=== PATIENT | female | born 1945 | race Caucasian/White ===

== ENCOUNTER 2019-04-10 18:37 | Emergency (ER) | payer MEDICARE ==
[2019-04-10 18:48] VITALS: PULSE 94
[2019-04-10] MEDS ORDERED: SODIUM CHLORIDE 0.9% 500 ML 500 ML IV STA (18:54)
--- NOTE | 2019-04-10 19:09 | ED ---
General Adult HPI - General Chief complaint: Syncope Stated complaint: near syncope Time Seen by Provider: 04/10/19 18:43 Source: patient, EMS Mode of arrival: EMS Limitations: no limitations - History of Present Illness Initial comments: 74-year-old female patient presents to the emergency department today for evaluation of leg weakness. Patient states she was out shopping, when she got back to the car her legs gave out on her. States today felt like they would not hold her up. States that her son was present and did catch her. She denies falling or hitting her head. She denies any recent head injury. Denies numbness or tingling to her extremities. Denies history of similar symptoms. She denies any headache, blurred vision, double vision. States she has been sick recently with upper respiratory symptoms including nasal congestion, cough, and occasional sweats. Denies any known fever. Denies any hematuria, dysuria, urinary frequency, urinary urgency. Patient denies any recent rash, shortness breath, chest pain, abdominal pain, nausea, vomiting, diarrhea, constipation, back pain, or any other complaints. - Related Data Allergies Allergy/AdvReac Type Severity Reaction Status Date / Time chocolate flavor Allergy Rash/Hives Verified 04/10/19 19:42 Review of Systems ROS Statement: Those systems with pertinent positive or pertinent negative responses have been documented in the HPI. ROS Other: All systems not noted in ROS Statement are negative. Past Medical History Past Medical History: Cancer Additional Past Medical History / Comment(s): intestinal CA in 2011 Past Surgical History: Bowel Resection, Hysterectomy Smoking Status: Never smoker Past Alcohol Use History: Rare Past Drug Use History: None Reported General Exam Limitations: no limitations General appearance: alert, in no apparent distress, other (This is a well- developed, well-nourished elderly female patient in no acute distress. Vital signs upon presentation are temperature 97.9F, pulse 94, respirations 19, blood pressure 152/91, pulse ox 97% on room air.) Eye exam: Present: normal appearance, PERRL, EOMI. Absent: scleral icterus, conjunctival injection, periorbital swelling ENT exam: Present: normal exam, normal oropharynx, mucous membranes moist Respiratory exam: Present: normal lung sounds bilaterally. Absent: respiratory distress, wheezes, rales, rhonchi, stridor Cardiovascular Exam: Present: regular rate, normal rhythm, normal heart sounds. Absent: systolic murmur, diastolic murmur, rubs, gallop, clicks GI/Abdominal exam: Present: soft, normal bowel sounds. Absent: distended, tenderness, guarding, rebound, rigid Neurological exam: Present: alert, oriented X3, CN II-XII intact Expanded Speech: Present: fluid speech Cranial nerves: EOM's Intact: Normal, Tongue Deviation: Normal Motor strength exam: RUE: 5, LUE: 5, RLE: 5, LLE: 5 Psychiatric exam: Present: normal affect, normal mood Skin exam: Present: warm, dry, intact, normal color. Absent: rash Course Vital Signs 04/10/19 04/10/19 18:39 22:19 Temperature 97.9 F 98.3 F Pulse Rate 94 94 Respiratory 19 18 Rate Blood Pressure 152/91 145/103 O2 Sat by Pulse 97 95 Oximetry EKG Findings - EKG Comments: EKG Findings:: EKG obtained at 1852 shows normal sinus rhythm with a ventricular rate of 91, NJ interval 124, QRS duration 84, QT 372, QTc 457. No evidence of ST elevation or depression. Medical Decision Making - Medical Decision Making 74-year-old female patient presents to the emergency department today for evaluation of weakness in her legs. Physical examination was unremarkable. She was neurologically intact with no focal deficits. Strength to the bilateral lower extremities is 5 out of 5. She is afebrile normal vital signs. Labs reviewed and showed elevated white blood cell count at 15,000. Chest x-ray showed no acute abnormalities. Urinalysis showed no evidence for infection. She denied any wounds or rash. EKG showed normal sinus rhythm. I did discuss findings and results with the patient. She was able to ambulate to department without any difficulty. She does feel well. She requests to go home. She is instructed follow up with her primary care physician for recheck in 1-2 days. Return parameters were discussed in detail. She verbalizes understanding and agrees with this plan. - Lab Data Result diagrams: 04/10/19 19:30 04/10/19 19:30 Lab Results 04/10/19 04/10/19 04/10/19 Range/Units 19:30 19:30 19:30 WBC 15.3 H (3.8-10.6) k/uL RBC 4.95 (3.80-5.40) m/uL Hgb 14.0 (11.4-16.0) gm/dL Hct 42.7 (34.0-46.0) % MCV 86.3 (80.0-100.0) fL MCH 28.3 (25.0-35.0) pg MCHC 32.7 (31.0-37.0) g/dL RDW 13.9 (11.5-15.5) % Plt Count 269 (150-450) k/uL Neutrophils % 88 % Lymphocytes % 6 % Monocytes % 4 % Eosinophils % 1 % Basophils % 0 % Neutrophils # 13.4 H (1.3-7.7) k/uL Lymphocytes # 0.9 L (1.0-4.8) k/uL Monocytes # 0.7 (0-1.0) k/uL Eosinophils # 0.2 (0-0.7) k/uL Basophils # 0.0 (0-0.2) k/uL PT (9.0-12.0) sec INR (<1.2) APTT (22.0-30.0) sec Sodium 140 (137-145) mmol/L Potassium 5.2 H (3.5-5.1) mmol/L Chloride 112 H (98-107) mmol/L Carbon Dioxide 17 L (22-30) mmol/L Anion Gap 11 mmol/L BUN 23 H (7-17) mg/dL Creatinine 0.80 (0.52-1.04) mg/dL Est GFR (CKD-EPI)AfAm 85 (>60 ml/min/1.73 sqM) Est GFR (CKD-EPI)NonAf 74 (>60 ml/min/1.73 sqM) Glucose 119 H (74-99) mg/dL Plasma Lactic Acid Oni 1.1 (0.7-2.0) mmol/L Calcium 9.7 (8.4-10.2) mg/dL Magnesium 1.9 (1.6-2.3) mg/dL Total Bilirubin 1.1 (0.2-1.3) mg/dL AST 46 H (14-36) U/L ALT 12 (9-52) U/L Alkaline Phosphatase 73 (38-126) U/L Troponin I (0.000-0.034) ng/mL Total Protein 8.4 H (6.3-8.2) g/dL Albumin 4.6 (3.5-5.0) g/dL Urine Color Urine Appearance (Clear) Urine pH (5.0-8.0) Ur Specific [place] (1.001-1.035) Urine Protein (Negative) Urine Glucose (UA) (Negative) Urine Ketones (Negative) Urine Blood (Negative) Urine Nitrite (Negative) Urine Bilirubin (Negative) Urine Urobilinogen (<2.0) mg/dL Ur Leukocyte Esterase (Negative) Urine RBC (0-5) /hpf Urine WBC (0-5) /hpf Ur Squamous Epith Cells (0-4) /hpf Hyaline Casts (0-2) /lpf Urine Mucus (None) /hpf 04/10/19 04/10/19 04/10/19 Range/Units 19:30 19:30 21:20 WBC (3.8-10.6) k/uL RBC (3.80-5.40) m/uL Hgb (11.4-16.0) gm/dL Hct (34.0-46.0) % MCV (80.0-100.0) fL MCH (25.0-35.0) pg MCHC (31.0-37.0) g/dL RDW (11.5-15.5) % Plt Count (150-450) k/uL Neutrophils % % Lymphocytes % % Monocytes % % Eosinophils % % Basophils % % Neutrophils # (1.3-7.7) k/uL Lymphocytes # (1.0-4.8) k/uL Monocytes # (0-1.0) k/uL Eosinophils # (0-0.7) k/uL Basophils # (0-0.2) k/uL PT 9.9 (9.0-12.0) sec INR 0.9 (<1.2) APTT 22.8 (22.0-30.0) sec Sodium (137-145) mmol/L Potassium (3.5-5.1) mmol/L Chloride (98-107) mmol/L Carbon Dioxide (22-30) mmol/L Anion Gap mmol/L BUN (7-17) mg/dL Creatinine (0.52-1.04) mg/dL Est GFR (CKD-EPI)AfAm (>60 ml/min/1.73 sqM) Est GFR (CKD-EPI)NonAf (>60 ml/min/1.73 sqM) Glucose (74-99) mg/dL Plasma Lactic Acid Oni (0.7-2.0) mmol/L Calcium (8.4-10.2) mg/dL Magnesium (1.6-2.3) mg/dL Total Bilirubin (0.2-1.3) mg/dL AST (14-36) U/L ALT (9-52) U/L Alkaline Phosphatase (38-126) U/L Troponin I <0.012 (0.000-0.034) ng/mL Total Protein (6.3-8.2) g/dL Albumin (3.5-5.0) g/dL Urine Color Yellow Urine Appearance Clear (Clear) Urine pH 5.0 (5.0-8.0) Ur Specific [place] 1.023 (1.001-1.035) Urine Protein Negative (Negative) Urine Glucose (UA) Negative (Negative) Urine Ketones 1+ H (Negative) Urine Blood Small H (Negative) Urine Nitrite Negative (Negative) Urine Bilirubin Negative (Negative) Urine Urobilinogen <2.0 (<2.0) mg/dL Ur Leukocyte Esterase Negative (Negative) Urine RBC <1 (0-5) /hpf Urine WBC <1 (0-5) /hpf Ur Squamous Epith Cells <1 (0-4) /hpf Hyaline Casts 1 (0-2) /lpf Urine Mucus Rare H (None) /hpf - Radiology Data Radiology results: report reviewed, image reviewed Two-view x-ray of the chest is obtained. Report was reviewed in its entirety. Impression by Dr. Hewitt shows no active cardiopulmonary disease. No heart failure. Disposition Clinical Impression: Leg weakness, Dehydration Disposition: HOME SELF-CARE Condition: Good Instructions (If sedation given, give patient instructions): Dehydration (ED), Weakness (ED) Additional Instructions: Follow-up with your primary care physician for recheck in 1-2 days. Increase fluids especially water. Return to the emergency department immediately for any new, worsening, or concerning symptoms. Is patient prescribed a controlled substance at d/c from ED?: No Referrals: Sinan Walsh MD [Primary Care Provider] - 1-2 days Time of Disposition: 22:52
[2019-04-10 19:45] LABS: Basophils % (A) 0 %; Eosinophils # (A) 0.2 k/uL (0-0.7); Eosinophils % (A) 1 %; HCT 42.7 % (34.0-46.0); Lymphocytes # (A) 0.9 k/uL (1.0-4.8); Lymphocytes % (A) 6 %; MCH 28.3 pg (25.0-35.0); MCHC 32.7 g/dL (31.0-37.0); MCV 86.3 fL (80.0-100.0); Mean Platelet Volume 8.2; Monocytes # (A) 0.7 k/uL (0-1.0); Monocytes % (A) 4 %; Neutrophils # (A) 13.4 k/uL (1.3-7.7); Neutrophils % (A) 88 %; Platelet Count 269 k/uL (150-450); RBC 4.95 m/uL (3.80-5.40); RDW 13.9 % (11.5-15.5); WBC 15.3 k/uL (3.8-10.6)
[2019-04-10 19:54] LABS: Albumin 4.6 g/dL (3.5-5.0); Calcium 9.7 mg/dL (8.4-10.2); Magnesium 1.9 mg/dL (1.6-2.3); Total Bilirubin 1.1 mg/dL (0.2-1.3); Total Protein 8.4 g/dL (6.3-8.2)
--- NOTE | 2019-04-10 19:54 | XR ---
EXAMINATION TYPE: XR chest 2V DATE OF EXAM: 04/10/2019 COMPARISON: NONE HISTORY: Weakness TECHNIQUE: 2 views FINDINGS: Heart is normal. Lungs are clear of consolidation. There are no hilar masses. There are jenny st leads. There is poor inspiration. There is minimal thoracolumbar kyphotic deformity. IMPRESSION: No active cardiopulmonary disease. No heart failure.
[2019-04-10 20:06] LABS: Potassium 5.2 mmol/L (3.5-5.1)
[2019-04-10] MEDS ORDERED: SODIUM CHLORIDE 0.9% 500 ML 500 ML IV ONE (20:10)
[2019-04-10 20:19] LABS: INR 0.9 (<1.2); Partial Thromboplastin Time 22.8 sec (22.0-30.0); Prothrombin Time 9.9 sec (9.0-12.0)
[2019-04-10 21:32] LABS: Appearance,Urine Clear (Clear); Bilirubin,Urine Negative (Negative); Blood,Urine Small (Negative); Color,Urine Yellow; Glucose,Urine (UA) Negative (Negative); Hyaline Casts,Urine 1 /lpf (0-2); Ketones,Urine 1+ (Negative); Leukocyte Esterase,Urine Negative (Negative); Mucus,Urine Rare /hpf; Nitrite,Urine Negative (Negative); Protein,Urine Negative (Negative); RBC,Urine <1 /hpf (0-5); Specific Gravity,Urine 1.023 (1.001-1.035); Squamous Epithelial Cell,Urine <1 /hpf (0-4); Urobilinogen,Urine <2.0 mg/dL (<2.0); WBC,Urine <1 /hpf (0-5)
[2019-04-10 22:20] VITALS: BP 145/103; RESP 18; TEMP 98.3
== END 2019-04-10 22:55 | disposition home or self-care (01) ==
LOC: EC 18:37
DX: E86.0 Dehydration (principal); D72.829 Elevated white blood cell count, unspecified; M62.81 Muscle weakness (generalized); Z91.018 Allergy to other foods; Z85.09 Personal history of malignant neoplasm of other digestive organs; Z90.49 Acquired absence of other specified parts of digestive tract
CPT/HCPCS: 36415; 71046; 80053; 81001; 83605; 83735; 84484; 85025; 85610; 85730; 93005; 96360; 96361; 99285

== ENCOUNTER 2020-03-20 08:54 | Inpatient (IN) | payer MEDICARE ==
[2020-03-20 08:58] VITALS: RESP 18
[2020-03-20] MEDS ORDERED: ACETAMINOPHEN TAB 500 MG TAB PO STA (09:13)
[2020-03-20] MEDS ORDERED: ACETAMINOPHEN TAB 500 MG TAB PO PRN (09:13)
[2020-03-20] MEDS ORDERED: ALBUTEROL HFA INHALER INHALATION PRN (09:13)
--- NOTE | 2020-03-20 09:15 | ED ---
General Adult HPI - General Chief complaint: Shortness of Breath Stated complaint: +COVID, SOB Time Seen by Provider: 03/20/20 09:03 Source: patient, RN notes reviewed Mode of arrival: wheelchair Limitations: no limitations - History of Present Illness Initial comments: Patient is a pleasant 75-year-old female presenting to the emergency Department with concerns for fever fatigue and dyspnea. Onset of symptoms is a few days ago. Patient received positive covert 19 test from her doctor yesterday. Minimal cough. Patient does feel short of breath. No history of chronic lung sounds. No leg pain or leg swelling. No chest pain. Patient has fatigue and myalgias and chills - Related Data Allergies Allergy/AdvReac Type Severity Reaction Status Date / Time chocolate flavor Allergy Rash/Hives Verified 04/10/19 19:42 Review of Systems ROS Statement: Those systems with pertinent positive or pertinent negative responses have been documented in the HPI. ROS Other: All systems not noted in ROS Statement are negative. Constitutional: Reports: fever, chills Eyes: Denies: eye pain ENT: Denies: ear pain Respiratory: Reports: dyspnea Cardiovascular: Denies: chest pain Endocrine: Reports: fatigue Gastrointestinal: Reports: nausea. Denies: abdominal pain, vomiting Genitourinary: Denies: dysuria Musculoskeletal: Denies: back pain Skin: Denies: rash Neurological: Denies: confusion Past Medical History Past Medical History: Cancer Additional Past Medical History / Comment(s): intestinal CA in 2011 History of Any Multi-Drug Resistant Organisms: None Reported Past Surgical History: Bowel Resection, Hysterectomy Past Psychological History: No Psychological Hx Reported Smoking Status: Never smoker Past Alcohol Use History: Rare Past Drug Use History: None Reported General Exam Limitations: no limitations General appearance: alert, in no apparent distress Head exam: Present: normocephalic Eye exam: Present: normal appearance Neck exam: Present: normal inspection Respiratory exam: Present: normal lung sounds bilaterally Cardiovascular Exam: Present: tachycardia GI/Abdominal exam: Present: soft. Absent: tenderness Extremities exam: Present: normal inspection. Absent: pedal edema, calf tendern ess Neurological exam: Present: alert Psychiatric exam: Present: normal affect, normal mood Skin exam: Present: normal color Course Vital Signs 03/20/20 08:56 Temperature 98.0 F Pulse Rate 105 H Respiratory 18 Rate Blood Pressure 156/78 O2 Sat by Pulse 96 Oximetry EKG Findings - EKG Comments: EKG Findings:: Neuro complex tachycardia with a rate of 107. Some irregularity is present. QRS 78. QT 356. QTc 475. Superior axis. Left posterior fascicular block. Nonspecific ST-T. Motion artifact present. Medical Decision Making - Medical Decision Making Patient reevaluated and updated. Case was discussed with Dr. Walsh who did eval uate patient in the emergency department and will admit his patient. - Lab Data Result diagrams: 03/20/20 09:15 03/20/20 09:15 Lab Results 03/20/20 03/20/20 03/20/20 Range/Units 09:15 09:15 09:15 WBC 8.9 (3.8-10.6) k/uL RBC 5.09 (3.80-5.40) m/uL Hgb 14.5 (11.4-16.0) gm/dL Hct 43.1 (34.0-46.0) % MCV 84.7 (80.0-100.0) fL MCH 28.4 (25.0-35.0) pg MCHC 33.6 (31.0-37.0) g/dL RDW 14.0 (11.5-15.5) % Plt Count 243 (150-450) k/uL MPV 7.9 Neutrophils % 81 % Lymphocytes % 14 % Monocytes % 3 % Eosinophils % 0 % Basophils % 1 % Neutrophils # 7.2 (1.3-7.7) k/uL Lymphocytes # 1.2 (1.0-4.8) k/uL Monocytes # 0.3 (0-1.0) k/uL Eosinophils # 0.0 (0-0.7) k/uL Basophils # 0.1 (0-0.2) k/uL PT 9.7 (9.0-12.0) sec INR 0.9 (<1.2) APTT 24.8 (22.0-30.0) sec Sodium 145 (137-145) mmol/L Potassium 4.1 (3.5-5.1) mmol/L Chloride 111 H (98-107) mmol/L Carbon Dioxide 21 L (22-30) mmol/L Anion Gap 13 mmol/L BUN 26 H (7-17) mg/dL Creatinine 0.67 (0.52-1.04) mg/dL Est GFR (CKD-EPI)AfAm >90 (>60 ml/min/1.73 sqM) Est GFR (CKD-EPI)NonAf 88 (>60 ml/min/1.73 sqM) Glucose 128 H (74-99) mg/dL Plasma Lactic Acid Oni (0.7-2.0) mmol/L Calcium 9.7 (8.4-10.2) mg/dL Magnesium 2.1 (1.6-2.3) mg/dL Total Bilirubin 0.7 (0.2-1.3) mg/dL AST 48 H (14-36) U/L ALT 21 (4-34) U/L Alkaline Phosphatase 76 (38-126) U/L Lactate Dehydrogenase 952 H (313-618) U/L C-Reactive Protein 85.8 H (<10.0) mg/L Total Protein 8.2 (6.3-8.2) g/dL Albumin 4.2 (3.5-5.0) g/dL 03/20/20 Range/Units 09:15 WBC (3.8-10.6) k/uL RBC (3.80-5.40) m/uL Hgb (11.4-16.0) gm/dL Hct (34.0-46.0) % MCV (80.0-100.0) fL MCH (25.0-35.0) pg MCHC (31.0-37.0) g/dL RDW (11.5-15.5) % Plt Count (150-450) k/uL MPV Neutrophils % % Lymphocytes % % Monocytes % % Eosinophils % % Basophils % % Neutrophils # (1.3-7.7) k/uL Lymphocytes # (1.0-4.8) k/uL Monocytes # (0-1.0) k/uL Eosinophils # (0-0.7) k/uL Basophils # (0-0.2) k/uL PT (9.0-12.0) sec INR (<1.2) APTT (22.0-30.0) sec Sodium (137-145) mmol/L Potassium (3.5-5.1) mmol/L Chloride (98-107) mmol/L Carbon Dioxide (22-30) mmol/L Anion Gap mmol/L BUN (7-17) mg/dL Creatinine (0.52-1.04) mg/dL Est GFR (CKD-EPI)AfAm (>60 ml/min/1.73 sqM) Est GFR (CKD-EPI)NonAf (>60 ml/min/1.73 sqM) Glucose (74-99) mg/dL Plasma Lactic Acid Oni 2.3 H* (0.7-2.0) mmol/L Calcium (8.4-10.2) mg/dL Magnesium (1.6-2.3) mg/dL Total Bilirubin (0.2-1.3) mg/dL AST (14-36) U/L ALT (4-34) U/L Alkaline Phosphatase (38-126) U/L Lactate Dehydrogenase (313-618) U/L C-Reactive Protein (<10.0) mg/L Total Protein (6.3-8.2) g/dL Albumin (3.5-5.0) g/dL - Radiology Data Radiology results: image reviewed (Chest x-ray does show scattered infiltrates, mild) Disposition Clinical Impression: COVID-19 Disposition: ADMITTED IP TO THIS HOSP Is patient prescribed a controlled substance at d/c from ED?: No Referrals: Sinan Walsh MD [Primary Care Provider] - 1-2 days Decision Time: 10:12
[2020-03-20] MEDS ORDERED: ALBUTEROL HFA INHALER INHALATION STA (09:18)
[2020-03-20 09:46] LABS: Basophils # (A) 0.1 k/uL (0-0.2); Basophils % (A) 1 %; Eosinophils % (A) 0 %; HCT 43.1 % (34.0-46.0); HGB 14.5 gm/dL (11.4-16.0); Lymphocytes # (A) 1.2 k/uL (1.0-4.8); Lymphocytes % (A) 14 %; MCH 28.4 pg (25.0-35.0); MCHC 33.6 g/dL (31.0-37.0); MCV 84.7 fL (80.0-100.0); Mean Platelet Volume 7.9; Monocytes # (A) 0.3 k/uL (0-1.0); Monocytes % (A) 3 %; Neutrophils # (A) 7.2 k/uL (1.3-7.7); Neutrophils % (A) 81 %; Platelet Count 243 k/uL (150-450); RBC 5.09 m/uL (3.80-5.40); WBC 8.9 k/uL (3.8-10.6)
--- NOTE | 2020-03-20 09:48 | XR ---
EXAMINATION TYPE: XR chest 1V portable DATE OF EXAM: 03/20/2020 COMPARISON: 04/10/2019 INDICATION: Covid 19 pneumonia, short of breath, fever TECHNIQUE: Single frontal view of the chest is obtained. FINDINGS: The heart size is normal. The pulmonary vasculature is normal. Some mild peripheral filtrates are evident greater at the right base. Findings are nonspecific but ca n be compatible with atypical pneumonia. IMPRESSION: 1. Mild scattered mid lower lung field infiltrates are nonspecific but can be compatible with atypica l pneumonia.
[2020-03-20 10:02] LABS: INR 0.9 (<1.2); Partial Thromboplastin Time 24.8 sec (22.0-30.0); Prothrombin Time 9.7 sec (9.0-12.0)
[2020-03-20 10:04] LABS: ALT 21 U/L (4-34); AST 48 U/L (14-36); African American GFR (CKD) >90 (>60 ml/min/1.73 sqM); Albumin 4.2 g/dL (3.5-5.0); Alkaline Phosphatase 76 U/L (38-126); Anion Gap 13 mmol/L; Blood Urea Nitrogen 26 mg/dL (7-17); C Reactive Protein 85.8 mg/L (<10.0); Calcium 9.7 mg/dL (8.4-10.2); Carbon Dioxide 21 mmol/L (22-30); Chloride 111 mmol/L (98-107); Glucose 128 mg/dL (74-99); LDH 952 U/L (313-618); Magnesium 2.1 mg/dL (1.6-2.3); Non-African American GFR(CKD) 88 (>60 ml/min/1.73 sqM); Potassium 4.1 mmol/L (3.5-5.1); Sodium 145 mmol/L (137-145); Total Bilirubin 0.7 mg/dL (0.2-1.3); Total Protein 8.2 g/dL (6.3-8.2)
[2020-03-20] MEDS ORDERED: NALOXONE 0.4 MG/ML 1 ML VIAL IV PRN (10:12)
[2020-03-20] MEDS: SODIUM CHLORIDE 0.9% 1,000 ML IV SCH ×2 (10:36→20:56)
[2020-03-20] MEDS: ASCORBIC ACID 500 MG TAB PO SCH ×2 (12:12→20:56)
--- NOTE | 2020-03-20 12:12 | P.HPIM ---
History of Present Illness H&P Date: 03/20/20 HISTORY OF PRESENT ILLNESS This is a 75-year-old female patient of Dr. Walsh with past medical history of hypertension, hyperlipidemia, hypothyroidism, colon cancer stage III status post bowel resection in remission. Patient was in the office on Monday and had Covid 19 testing which came back positive on Monday. Staff attempted to contact the patient. Patient complains of fever, generalized malaise and weakness, nausea. She came into the emergency center for evaluation. She was found to be afebrile, heart rate 105, blood pressure 156/78, pulse ox 96% on room air. CBC was unremarkable. Chloride 111, CO2 21, BUN 26 and creatinine 0.67. Lactic acid 2.3. AST 48. LDH 952, C-reactive protein 85.8. EKG was a sinus rhythm. Chest x-ray revealed mild scattered mid lower lung field infiltrates are nonspecific but can be compatible with atypical pneumonia. Patient was started on dexamethasone, Lovenox, zinc, vitamin C and vitamin D, admitted to the observation unit and consult with pulmonary medicine. REVIEW OF SYSTEMS Constitutional: Reports fever, Reports chills, Reports sweats. No weight change. Reports weakness, Reports fatigue Reports lethargy. Reports generalized malaise. EENT: No headache. No blurred vision or double vision, no loss of vision. No dizziness. No nasal drainage or congestion. No epistaxis. No sore throat. Lungs: Reports shortness of breath, Reportscough, no sputum production. No whe ezing. Cardiovascular: No chest pain, no lower extremity edema. No palpitations. No paroxysmal nocturnal dyspnea. No orthopnea. No lightheadedness or dizziness. No syncopal episodes. Abdominal: No abdominal pain. No nausea, vomiting. No diarrhea. No constipation. No bloody or tarry stools.. No loss of appetite. Genitourinary: No dysuria, increased frequency, urgency. No urinary retention. Musculoskeletal: No myalgias. No muscle weakness, no gait dysfunction, no frequent falls. No back pain. No neck pain. Integumentary: No wounds, no lesions. Neurologic: No aphasia. No facial droop. No change in mentation. No head injury. No headache. Psychiatric: No depression. No anxiety. Endocrine: No abnormal blood sugars. No weight change. SOCIAL HISTORY Patient is a lifelong nonsmoker, rare alcohol use, no marijuana use or illicit drug use. She is a and lives alone. FAMILY HISTORY Father at age 60 from a massive myocardial infarction. Mother at age 86 with dementia and history of osteoporosis. Patient was an only child. Patient has 2 children one his past and one son has no major medical problems. PHYSICAL EXAMINATION Gen: This is a 75-year-old female. She is resting on the ear stretcher and appears to be comfortable. No acute respiratory distress at rest. HEENT: Head is atraumatic, normocephalic. Pupils equal, round. Sclerae is anicteric. NECK: Supple. No JVD. No lymphadenopathy. No thyromegaly. LUNGS: Clear to auscultation. No wheezes or rhonchi. No intercostal retractions. HEART: Regular rate and rhythm. No murmur. ABDOMEN: Soft. Bowel sounds are present. No masses. No tenderness. EXTREMITIES: No pedal edema. No calf tenderness. Dorsalis pedis palpable bilaterally. NEUROLOGICAL: Patient is awake, alert and oriented x3. Cranial nerves 2 through 12 are grossly intact. ASSESSMENT AND PLAN 1. Covid 19 pneumonia. Continue dexamethasone, Lovenox, zinc, vitamin C and vitamin D. Consult pulmonary medicine. 2. Lactic acidosis secondary to Covid infection. Continue IV fluids 0.9 normal saline at 100 mL per hour. 3. History of colon cancer stage III status post bowel resection, in remission. 4. Hypertension not currently on medication. 5. Hyperlipidemia history. 6. Hypothyroidism history. 7. DVT prophylaxis. Lovenox. 8. GI prophylaxis. Protonix. Patient placed on the observation status. DISCHARGE PLAN Return home. Impression and plan of care have been directed as dictated by the signing physician. Anjelica Rubio nurse practitioner acting as scribe for signing physician. Past Medical History Past Medical History: Cancer Additional Past Medical History / Comment(s): intestinal CA in 2011 History of Any Multi-Drug Resistant Organisms: None Reported Past Surgical History: Bowel Resection, Hysterectomy Past Psychological History: No Psychological Hx Reported Smoking Status: Never smoker Past Alcohol Use History: Rare Past Drug Use History: None Reported Medications and Allergies Home Medications Medication Instructions Recorded Confirmed Type Acetaminophen [Tylenol] 325 mg PO Q6H PRN 03/20/20 03/20/20 History Allergies Allergy/AdvReac Type Severity Reaction Status Date / Time chocolate flavor Allergy Rash/Hives Verified 03/20/20 10:34 Physical Exam Vitals: Vital Signs Temp Pulse Resp BP Pulse Ox 03/20/20 08:56 98.0 F 105 H 18 156/78 96 Intake and Output 03/19/20 03/20/20 03/20/20 22:59 06:59 14:59 Other: Weight 71.214 kg Results CBC & Chem 7: 03/20/20 09:15 03/20/20 09:15
[2020-03-20] MEDS: dexAMETHasone 2 MG TAB PO SCH (12:13)
[2020-03-20] MEDS: ENOXAPARIN 40 MG/0.4 ML SYRINGE SQ SCH (12:13)
[2020-03-20] MEDS: CHOLECALCIFEROL 1,000 UNIT TAB PO SCH (12:13)
[2020-03-20] MEDS: ZINC SULFATE 220 MG CAP PO SCH (12:13)
--- NOTE | 2020-03-20 14:09 | P.CNPUL ---
History of Present Illness Consult date: 03/20/20 Requesting physician: Sinan Walsh Reason for consult: other Chief complaint: Fever, weakness, fatigue History of present illness: 75-year-old white female patient of Dr. Walsh past medical history of hypertension, hyperlipidemia, hypothyroidism, colon cancer 5 years ago status post bowel resection and chemotherapy. Patient was admitted Dr. Walsh's office on Monday planning of back pain, she was tested for COVID 19, although she was not having any symptoms of COVID 19 at the time. On Monday she was contacted by them PCPs office to notify her of the positive results. She presented to the hospital on 03/20/2020 for evaluation of fevers, weakness, fatigue, dry cough. She denies any dyspnea. Denies any chest discomfort, no nausea vomiting or diarrhea. Chest x-ray showed mild scattered mid to lower lung field infiltrates, nonspecific but could be compatible with atypical pneumonia. CBC was unremarkable, coagulation profile was unremarkable, plasma lactic acid was 2.3, LDH was 952, CRP was 85.8. She was afebrile while in the hospital, sat 92% on room air, EKG showed accelerated junctional rhythm. The time of my evaluation patient is resting comfortably in bed, denies any dyspnea, denies chest discomfort, occasional dry cough. No nausea vomiting or diarrhea, she is getting IV hydration with 0.9 was seen at a rate of 100 ML per hour, she was started on oral Decadron, prophylactic dose of Lovenox, and vitamin C as well as zinc supplement. Review of Systems All systems: negative Constitutional: Denies chills, Denies fever Eyes: denies blurred vision, denies pain Ears, nose, mouth and throat: Denies headache, Denies sore throat Cardiovascular: Denies chest pain, Denies shortness of breath Respiratory: Reports dyspnea, Denies cough Gastrointestinal: Denies abdominal pain, Denies diarrhea, Denies nausea, Denies vomiting Genitourinary: Denies dysuria, Denies hematuria Musculoskeletal: Denies myalgias Integumentary: Denies pruritus, Denies rash Neurological: Denies numbness, Denies weakness Psychiatric: Denies anxiety, Denies depression Endocrine: Denies fatigue, Denies weight change Past Medical History Past Medical History: Cancer Additional Past Medical History / Comment(s): intestinal CA in 2011 History of Any Multi-Drug Resistant Organisms: None Reported Past Surgical History: Bowel Resection, Hysterectomy Past Anesthesia/Blood Transfusion Reactions: No Reported Reaction Past Psychological History: No Psychological Hx Reported Smoking Status: Never smoker Past Alcohol Use History: Rare Past Drug Use History: None Reported Medications and Allergies Home Medications Medication Instructions Recorded Confirmed Type Acetaminophen [Tylenol] 325 mg PO Q6H PRN 03/20/20 03/20/20 History Allergies Allergy/AdvReac Type Severity Reaction Status Date / Time chocolate flavor Allergy Rash/Hives Verified 03/20/20 10:34 Physical Exam Vitals: Vital Signs Temp Pulse Pulse Resp BP BP Pulse Ox 03/20/20 11:15 97.9 F 92 18 140/73 92 L 03/20/20 10:31 98.8 F 91 18 114/76 95 03/20/20 08:56 98.0 F 105 H 18 156/78 96 Intake and Output 03/19/20 03/20/20 03/20/20 22:59 06:59 14:59 Other: Weight 71.214 kg GENERAL EXAM: Alert, active, very pleasant 75-year-old white female, on room air with pulse ox of 92% comfortable in no apparent distress. HEAD: Normocephalic/atraumatic. EYES: Normal reaction of pupils, equal size. Conjunctiva pink, sclera white. NOSE: Clear with pink turbinates. THROAT: No erythema or exudates. NECK: No masses, no JVD, no thyroid enlargement, no adenopathy. CHEST: No chest wall deformity. Symmetrical expansion. LUNGS: Equal air entry with no crackles, wheeze, rhonchi or dullness. CVS: Regular rate and rhythm, normal S1 and S2, no gallops, no murmurs, no rubs ABDOMEN: Soft, nontender. No hepatosplenomegaly, normal bowel sounds, no guard ing or rigidity. EXTREMITIES: No clubbing, no edema, no cyanosis, 2+ pulses and upper and lower extremities. MUSCULOSKELETAL: Muscle strength and tone normal. SPINE: No scoliosis or deformity SKIN: No rashes CENTRAL NERVOUS SYSTEM: Alert and oriented -3. No focal deficits, tone is normal in all 4 extremities. PSYCHIATRIC: Alert and oriented -3. Appropriate affect. Intact judgment and insight. Results - Laboratory Findings CBC and BMP: 03/20/20 09:15 03/20/20 09:15 PT/INR, D-dimer PT 9.7 sec (9.0-12.0) 03/20/20 09:15 INR 0.9 (<1.2) 03/20/20 09:15 Abnormal lab findings: Abnormal Labs 03/20/20 03/20/20 09:15 09:15 Chloride 111 H Carbon Dioxide 21 L BUN 26 H Glucose 128 H Plasma Lactic Acid Oni 2.3 H* AST 48 H Lactate Dehydrogenase 952 H C-Reactive Protein 85.8 H - Diagnostic Findings Chest x-ray: report reviewed, image reviewed Assessment and Plan Plan: Assessment: #1. Acute COVID 19 pneumonia, tested positive for COVID on March 16, chest x- ray showing mild scattered mid to lower lung field infiltrates #2. Weakness, fatigue, fever related to the above #3. Hypertension #4. Hyperlipidemia #5. Hypothyroidism #6. Colon cancer status post bowel resection and chemotherapy 5 years ago, currently in remission #7. Increased inflammatory markers with the above Plan: Continue oral Decadron, continue vitamin C, zinc supplement, prophylactic dose of Lovenox, will obtain stat d-dimer, pro-calcitonin level, continue monitoring patient's oxygenation pattern, febrile pattern. No dyspnea, mild dry cough, patient is on room air, we'll continue to monitor the patient for another 24 hours, we'll continue to follow I performed a history & physical examination of the patient and discussed their management with my nurse practitioner, Jane Sun. I reviewed the nurse practitioner's note and agree with the documented findings and plan of care. Lung sounds are positive for diminished breath sounds. The findings and the impression was discussed with the patient. I attest to the documentation by the nurse practitioner. Time with Patient: Greater than 30
[2020-03-20 15:46] LABS: Ferritin 731.4 ng/mL (10.0-291.0)
[2020-03-20] MEDS: ALBUTEROL HFA INHALER INHALATION SCH ×2 (16:03→19:52)
[2020-03-20] MEDS ORDERED: MELATONIN 5 MG TABLET PO SCH (21:00)
[2020-03-21] MEDS: SODIUM CHLORIDE 0.9% 1,000 ML IV SCH (06:02)
[2020-03-21] MEDS: ALBUTEROL HFA INHALER INHALATION SCH ×2 (07:34→11:24)
[2020-03-21 08:36] VITALS: BP 129/59; PULSE 88; TEMP 97.7
[2020-03-21 09:23] LABS: Basophils % (A) 0 %; Eosinophils % (A) 0 %; HCT 40.8 % (34.0-46.0); HGB 13.4 gm/dL (11.4-16.0); Lymphocytes # (A) 0.8 k/uL (1.0-4.8); Lymphocytes % (A) 13 %; MCH 28.2 pg (25.0-35.0); MCHC 32.8 g/dL (31.0-37.0); MCV 86.2 fL (80.0-100.0); Monocytes # (A) 0.3 k/uL (0-1.0); Monocytes % (A) 4 %; Neutrophils % (A) 81 %; Platelet Count 225 k/uL (150-450); RBC 4.73 m/uL (3.80-5.40); WBC 6.1 k/uL (3.8-10.6)
[2020-03-21 09:29] LABS: Potassium 3.8 mmol/L (3.5-5.1)
[2020-03-21 09:33] LABS: ALT 17 U/L (4-34); AST 34 U/L (14-36); African American GFR (CKD) >90 (>60 ml/min/1.73 sqM); Albumin 3.3 g/dL (3.5-5.0); Alkaline Phosphatase 65 U/L (38-126); Anion Gap 9 mmol/L; Blood Urea Nitrogen 17 mg/dL (7-17); C Reactive Protein 66.1 mg/L (<10.0); Calcium 8.8 mg/dL (8.4-10.2); Carbon Dioxide 21 mmol/L (22-30); Chloride 115 mmol/L (98-107); Glucose 123 mg/dL (74-99); LDH 671 U/L (313-618); Non-African American GFR(CKD) 89 (>60 ml/min/1.73 sqM); Sodium 145 mmol/L (137-145); Total Bilirubin 0.5 mg/dL (0.2-1.3); Total Protein 6.7 g/dL (6.3-8.2)
[2020-03-21 09:38] LABS: D-Dimer 0.53 mg/L FEU (<0.60)
[2020-03-21] MEDS: ENOXAPARIN 40 MG/0.4 ML SYRINGE SQ SCH (09:43)
[2020-03-21] MEDS: ZINC SULFATE 220 MG CAP PO SCH (09:44)
[2020-03-21] MEDS: CHOLECALCIFEROL 1,000 UNIT TAB PO SCH (09:44)
[2020-03-21] MEDS: dexAMETHasone 2 MG TAB PO SCH (09:44)
[2020-03-21] MEDS: ASCORBIC ACID 500 MG TAB PO SCH (09:44)
--- NOTE | 2020-03-21 10:29 | P.DS ---
Providers Date of admission: 03/20/20 10:12 Expected date of discharge: 03/21/20 Attending physician: Sinan Walsh Consults: 03/20/20 12:25 Consult Physician Routine Consulting Provider: Jeff Ayala Consult Reason/Comments: covid Do you want consulting provider notified?: Yes Primary care physician: Sinan Nico [facility] Course: HISTORY OF PRESENT ILLNESS This is a 75-year-old female patient of Dr. Walsh with past medical history of hypertension, hyperlipidemia, hypothyroidism, colon cancer stage III status post bowel resection in remission. Patient was in the office on Monday and had Covid 19 testing which came back positive on Monday. Staff attempted to contact the patient. Patient complains of fever, generalized malaise and weakness, nausea. She came into the emergency center for evaluation. She was found to be afebrile, heart rate 105, blood pressure 156/78, pulse ox 96% on room air. CBC was unremarkable. Chloride 111, CO2 21, BUN 26 and creatinine 0.67. Lactic acid 2.3. AST 48. LDH 952, C-reactive protein 85.8. EKG was a sinus rhythm. Chest x-ray revealed mild scattered mid lower lung field infiltrates are nonspecific but can be compatible with atypical pneumonia. Patient was started on dexamethasone, Lovenox, zinc, vitamin C and vitamin D, admitted to the observation unit and consult with pulmonary medicine. 03/21: Patient has been off oxygen and pulse oxing 92%. She has been afebrile, heart rate 88, blood pressure 129/59. Cough is currently controlled. She is taking oral fluids and food. Patient is anxious to be discharged home today. She was seen by pulmonary medicine. Patient will be discharged home today in stable condition. ASSESSMENT AND PLAN 1. Covid 19 pneumonia. 2. Lactic acidosis secondary to Covid infection. 3. History of colon cancer stage III status post bowel resection, in remission. 4. Hypertension not currently on medication. 5. Hyperlipidemia history. 6. Hypothyroidism history. DISCHARGE PLAN Return home. Impression and plan of care have been directed as dictated by the signing physician. Anjelica Rubio nurse practitioner acting as scribe for signing physician. Patient Condition at Discharge: Good Plan - Discharge Summary Discharge Rx Participant: Yes New Discharge Prescriptions: New dexAMETHasone [Hexadrol] 6 mg PO DAILY #15 tab Zinc Sulfate [Orazinc] 220 mg PO DAILY cap Ascorbic Acid [Vitamin C] 500 mg PO BID tab Cholecalciferol [Vitamin D3 (25 Mcg = 1000 Iu)] 5,000 unit PO DAILY tab Continue Acetaminophen [Tylenol] 325 mg PO Q6H PRN PRN Reason: Pain Or Fever > 100.5 Discharge Medication List Acetaminophen [Tylenol] 325 mg PO Q6H PRN 03/20/20 [History] Ascorbic Acid [Vitamin C] 500 mg PO BID tab 03/21/20 [Rx] Cholecalciferol [Vitamin D3 (25 Mcg = 1000 Iu)] 5,000 unit PO DAILY tab 03/21/20 [Rx] Zinc Sulfate [Orazinc] 220 mg PO DAILY cap 03/21/20 [Rx] dexAMETHasone [Hexadrol] 6 mg PO DAILY #15 tab 03/21/20 [Rx] Follow up Appointment(s)/Referral(s): Sinan Walsh MD [Primary Care Provider] - 1 Week
--- NOTE | 2020-03-21 14:36 | P.PN ---
Subjective Progress Note Date: 03/21/20 On today's evaluation of 03/21/2020, the patient is feeling well. The patient is a specific complaints. The patient remains on room air oxygen with a pulse of 72% pH is afebrile. She is well-hydrated and the patient received IV fluids over the past 24 hours. She is tolerating her diet. She had a full breakfast this morning. The plan is to send this patient home today to the followed up on outpatient basis and she'll be completing the course of Decadron outpatient basis. Objective - Vital Signs Vital signs: Vital Signs Temp 97.7 F 03/21/20 08:30 Pulse 88 03/21/20 08:30 Resp 18 03/21/20 08:30 BP 129/59 03/21/20 08:30 Pulse Ox 92 L 03/21/20 08:30 Intake & Output 03/20/20 03/21/20 03/21/20 18:59 06:59 18:59 Intake Total 240 Balance 240 Weight 71.214 kg Intake: Oral 240 Other: Voiding Method Toilet # Voids 1 1 1 # Bowel Movements 1 - Exam The patient appeared well nourished and normally developed. Vital signs as do cumented. Head exam is unremarkable. No scleral icterus or corneal arcus noted. Neck is without jugular venous distension, thyromegaly, or carotid bruits. Carotid upstrokes are brisk bilaterally. Lungs are clear to auscultation and percussion. Cardiac exam reveals the PMI to be normally sized and situated. Rhythm is regular. First and second heart sounds normal. No murmurs, rubs or gallops. Abdominal exam reveals normal bowel sounds, no masses, no organomegaly and no aortic enlargement. Extremities are nonedematous and both femoral and pedal pulses are normal. - Labs CBC & Chem 7: 03/21/20 08:25 03/21/20 08:25 Labs: Abnormal Lab Results - Last 24 Hours (Table) 03/20/20 03/21/20 03/21/20 Range/Units 09:15 08:25 08:25 Lymphocytes # 0.8 L (1.0-4.8) k/uL Fibrinogen 569 H (200-500) mg/dL Chloride (98-107) mmol/L Carbon Dioxide (22-30) mmol/L Glucose (74-99) mg/dL Ferritin 731.4 H (10.0-291.0) ng/mL Lactate Dehydrogenase (313-618) U/L C-Reactive Protein (<10.0) mg/L Albumin (3.5-5.0) g/dL 03/21/20 Range/Units 08:25 Lymphocytes # (1.0-4.8) k/uL Fibrinogen (200-500) mg/dL Chloride 115 H (98-107) mmol/L Carbon Dioxide 21 L (22-30) mmol/L Glucose 123 H (74-99) mg/dL Ferritin (10.0-291.0) ng/mL Lactate Dehydrogenase 671 H (313-618) U/L C-Reactive Protein 66.1 H (<10.0) mg/L Albumin 3.3 L (3.5-5.0) g/dL Microbiology - Last 24 Hours (Table) 03/20/20 09:15 Blood Culture - Preliminary Blood No Growth after 24 hours Assessment and Plan Plan: #1. Acute COVID 19 pneumonia, tested positive for COVID on March 16, chest x- ray showing mild scattered mid to lower lung field infiltrates. The patient is a mild case of Covid19 related pneumonia and the patient remains to maintain a good oxygen saturations above 90%. She did have some past social symptoms earlier which improved. #2. Weakness, fatigue, fever related to the above, improving #3. Hypertension #4. Hyperlipidemia #5. Hypothyroidism #6. Colon cancer status post bowel resection and chemotherapy 5 years ago, currently in remission #7. Increased inflammatory markers with the above Plan This is a patient home today on oral Decadron, also suggest zinc oxide and vitamin C supplements. Suggest baby aspirin. Suggest increasing level of activity as tolerated. Contact us back if there is any worsening shortness of breath. Otherwise, she can be followed up with the primary care physician. She is clear for discharge from the pulmonary standpoint. Case was discussed with the medicine group
== END 2020-03-21 13:17 | disposition home or self-care (01) | DRG 177 ==
LOC: EC 08:54 → 1SOBS 10:12 → OBSVTOIN 03-21 09:25
PROVIDERS: ADMIT Internal Medicine Geriatric Medicine; ATTEND Internal Medicine Geriatric Medicine
DX: U07.1 COVID-19 (principal); J12.89 Other viral pneumonia; E87.2 Acidosis; I44.5 Left posterior fascicular block; I10 Essential (primary) hypertension; E78.5 Hyperlipidemia, unspecified; E03.9 Hypothyroidism, unspecified; M54.9 Dorsalgia, unspecified; Z85.038 Personal history of other malignant neoplasm of large intestine; Z90.49 Acquired absence of other specified parts of digestive tract; Z90.710 Acquired absence of both cervix and uterus; Z87.42 Personal history of other diseases of the female genital tract; Z98.890 Other specified postprocedural states; Z91.02 Food additives allergy status; Z92.21 Personal history of antineoplastic chemotherapy; Z82.49 Family history of ischemic heart disease and other diseases of the circulatory system; Z82.62 Family history of osteoporosis; Z81.8 Family history of other mental and behavioral disorders
CPT/HCPCS: 36415; 71045; 80053; 82728; 83605; 83615; 83735; 84145; 85025; 85379; 85384; 85610; 85730; 86140; 87040; 93005; 94640; 94760; 99285

== ENCOUNTER 2020-04-19 06:45 | Emergency (ER) | payer MEDICARE ==
[2020-04-19] MEDS ORDERED: ONDANSETRON 4 MG/2 ML VIAL IVP STA (07:04)
[2020-04-19] MEDS ORDERED: SODIUM CHLORIDE 0.9% 1,000 ML IV ONE (07:04)
[2020-04-19] MEDS ORDERED: methylPREDNISolone SOD SUCCI 125 MG/2 ML VIAL IV STA (07:04)
[2020-04-19] MEDS ORDERED: LORazepam 2 MG/ML INJ IV STA (07:06)
--- NOTE | 2020-04-19 07:07 | ED ---
General Adult HPI - General Chief complaint: Shortness of Breath Stated complaint: Weakness, Covid + Time Seen by Provider: 04/19/20 06:57 Source: patient, RN notes reviewed, old records reviewed Mode of arrival: wheelchair - History of Present Illness Initial comments: 75-year-old female presents emergency department today for evaluation of complaints of fatigue and nausea and lack of appetite for the past month. Patient reports that she was admitted to hospital March 21 after being diagnosed with Coban 19 infection. Patient states that she continues to have some fatigue and feeling well since that time. Patient reports that she has had no recent fevers or chills. - Related Data Home Medications Medication Instructions Recorded Confirmed D-Methorphan/PE/Acetaminophen 2 cap PO Q6H PRN 04/19/20 04/19/20 [Vicks Dayquil Liquicaps] Previous Rx's Medication Instructions Recorded Albuterol Inhaler [Ventolin Hfa 1 puff INHALATION RT-QID #1 inhaler 04/19/20 Inhaler] Azithromycin 250 mg PO DAILY 5 Days #6 tab 04/19/20 Ondansetron Odt [Zofran Odt] 4 mg PO Q8HR PRN #12 tab 04/19/20 predniSONE [Deltasone] 20 mg PO BID #10 tab 04/19/20 Allergies Allergy/AdvReac Type Severity Reaction Status Date / Time No Known Allergies Allergy Verified 04/19/20 07:27 Review of Systems ROS Statement: Those systems with pertinent positive or pertinent negative responses have been documented in the HPI. ROS Other: All systems not noted in ROS Statement are negative. Past Medical History Past Medical History: Cancer Additional Past Medical History / Comment(s): intestinal CA in 2011 History of Any Multi-Drug Resistant Organisms: None Reported Past Surgical History: Bowel Resection, Hysterectomy Past Anesthesia/Blood Transfusion Reactions: No Reported Reaction Past Psychological History: No Psychological Hx Reported Smoking Status: Never smoker Past Alcohol Use History: Rare Past Drug Use History: None Reported General Exam - General Exam Comments Initial Comments: Any 5-year-old female. Alert and oriented. No distress. General appearance: alert, in no apparent distress Head exam: Present: atraumatic, normocephalic, normal inspection Eye exam: Present: normal appearance ENT exam: Present: normal exam, mucous membranes moist Neck exam: Present: normal inspection Respiratory exam: Present: normal lung sounds bilaterally. Absent: respiratory distress, wheezes, rales, rhonchi, stridor Cardiovascular Exam: Present: regular rate, normal rhythm, normal heart sounds. Absent: systolic murmur, diastolic murmur, rubs, gallop, clicks GI/Abdominal exam: Present: soft, normal bowel sounds. Absent: distended, tenderness, guarding, rebound, rigid Extremities exam: Present: normal inspection, full ROM, normal capillary refill. Absent: tenderness, pedal edema, joint swelling, calf tenderness Back exam: Present: normal inspection Neurological exam: Present: alert, oriented X3, CN II-XII intact Psychiatric exam: Present: normal affect, normal mood Skin exam: Present: warm, dry, intact, normal color. Absent: rash Course Vital Signs 04/19/20 04/19/20 06:48 07:25 Temperature 98.8 F Pulse Rate 84 Respiratory 22 20 Rate Blood Pressure 164/85 O2 Sat by Pulse 99 Oximetry Medical Decision Making - Medical Decision Making 75-year-old female presents the ER stay for evaluation for nausea and feeling unwell since recent diagnosis of Covid 1 month ago. Patient has been to the hospital that time. At this time patient's vital signs stable including normal oxygenation 99 to 100% on room air. Patient otherwise appears well. Patient's chest x-ray shows some infiltrate however in reviewing chest x-ray from March it's improved. Patient's labs were otherwise reviewed and showed some mild dehydration lactic acid of 2.3. Patient was reevaluated and resting better after IV fluids medications. I advised Patient that her oxygen saturation saturations are well and labs were otherwise within normal limits. I did discuss that she should return to emergency department if any further alarming symptoms occur but at this time patient's oxygenation level she is stable for discharge home. Patient will follow-up with her primary care doctor. All questions answered. - Lab Data Result diagrams: 04/19/20 07:10 04/19/20 07:10 Lab Results 04/19/20 04/19/20 04/19/20 Range/Units 07:10 07:10 07:10 WBC 10.8 H (3.8-10.6) k/uL RBC 4.94 (3.80-5.40) m/uL Hgb 14.6 (11.4-16.0) gm/dL Hct 43.4 (34.0-46.0) % MCV 87.8 (80.0-100.0) fL MCH 29.6 (25.0-35.0) pg MCHC 33.7 (31.0-37.0) g/dL RDW 15.1 (11.5-15.5) % Plt Count 333 (150-450) k/uL MPV 7.4 Neutrophils % 71 % Lymphocytes % 20 % Monocytes % 4 % Eosinophils % 3 % Basophils % 1 % Neutrophils # 7.7 (1.3-7.7) k/uL Lymphocytes # 2.2 (1.0-4.8) k/uL Monocytes # 0.4 (0-1.0) k/uL Eosinophils # 0.3 (0-0.7) k/uL Basophils # 0.1 (0-0.2) k/uL PT 9.7 (9.0-12.0) sec INR 0.9 (<1.2) APTT 24.0 (22.0-30.0) sec Sodium 141 (137-145) mmol/L Potassium 3.7 (3.5-5.1) mmol/L Chloride 110 H (98-107) mmol/L Carbon Dioxide 21 L (22-30) mmol/L Anion Gap 10 mmol/L BUN 15 (7-17) mg/dL Creatinine 0.75 (0.52-1.04) mg/dL Est GFR (CKD-EPI)AfAm >90 (>60 ml/min/1.73 sqM) Est GFR (CKD-EPI)NonAf 79 (>60 ml/min/1.73 sqM) Glucose 119 H (74-99) mg/dL Plasma Lactic Acid Oni (0.7-2.0) mmol/L Calcium 9.8 (8.4-10.2) mg/dL Magnesium 2.1 (1.6-2.3) mg/dL Total Bilirubin 0.6 (0.2-1.3) mg/dL AST 31 (14-36) U/L ALT 31 (4-34) U/L Alkaline Phosphatase 81 (38-126) U/L Lactate Dehydrogenase 559 (313-618) U/L C-Reactive Protein <5.0 (<10.0) mg/L Total Protein 7.8 (6.3-8.2) g/dL Albumin 4.3 (3.5-5.0) g/dL 04/19/20 Range/Units 07:10 WBC (3.8-10.6) k/uL RBC (3.80-5.40) m/uL Hgb (11.4-16.0) gm/dL Hct (34.0-46.0) % MCV (80.0-100.0) fL MCH (25.0-35.0) pg MCHC (31.0-37.0) g/dL RDW (11.5-15.5) % Plt Count (150-450) k/uL MPV Neutrophils % % Lymphocytes % % Monocytes % % Eosinophils % % Basophils % % Neutrophils # (1.3-7.7) k/uL Lymphocytes # (1.0-4.8) k/uL Monocytes # (0-1.0) k/uL Eosinophils # (0-0.7) k/uL Basophils # (0-0.2) k/uL PT (9.0-12.0) sec INR (<1.2) APTT (22.0-30.0) sec Sodium (137-145) mmol/L Potassium (3.5-5.1) mmol/L Chloride (98-107) mmol/L Carbon Dioxide (22-30) mmol/L Anion Gap mmol/L BUN (7-17) mg/dL Creatinine (0.52-1.04) mg/dL Est GFR (CKD-EPI)AfAm (>60 ml/min/1.73 sqM) Est GFR (CKD-EPI)NonAf (>60 ml/min/1.73 sqM) Glucose (74-99) mg/dL Plasma Lactic Acid Oni 2.3 H* (0.7-2.0) mmol/L Calcium (8.4-10.2) mg/dL Magnesium (1.6-2.3) mg/dL Total Bilirubin (0.2-1.3) mg/dL AST (14-36) U/L ALT (4-34) U/L Alkaline Phosphatase (38-126) U/L Lactate Dehydrogenase (313-618) U/L C-Reactive Protein (<10.0) mg/L Total Protein (6.3-8.2) g/dL Albumin (3.5-5.0) g/dL - Radiology Data Radiology results: report reviewed EKG performed at 734 shows normal sinus rhythm normal EKG. Ventricular rate 75 bpm.. Intervals 136 ms. QS duration is 84 ms. QT QTc is 390/441 ms. Peripheral infiltrate in the left midlung zone is noted. Improved aeration at the periphery of the right midlung zone. Disposition Clinical Impression: COVID-19 Disposition: HOME SELF-CARE Condition: Good Instructions (If sedation given, give patient instructions): Chronic Cough (ED) Additional Instructions: Patient has a follow-up with her primary care physician. Return to emergency department if any alarming signs or symptoms occur. Take medication as prescribed. Prescriptions: Azithromycin 250 mg PO DAILY 5 Days #6 tab predniSONE [Deltasone] 20 mg PO BID #10 tab Albuterol Inhaler [Ventolin Hfa Inhaler] 1 puff INHALATION RT-QID #1 inhaler Ondansetron Odt [Zofran Odt] 4 mg PO Q8HR PRN #12 tab PRN Reason: Nausea Is patient prescribed a controlled substance at d/c from ED?: No Referrals: Sinan Walsh MD [Primary Care Provider] - 1-2 days Time of Disposition: 08:56
[2020-04-19 07:19] VITALS: TEMP 98.8
[2020-04-19 07:26] LABS: Basophils # (A) 0.1 k/uL (0-0.2); Basophils % (A) 1 %; Eosinophils # (A) 0.3 k/uL (0-0.7); Eosinophils % (A) 3 %; HCT 43.4 % (34.0-46.0); HGB 14.6 gm/dL (11.4-16.0); Lymphocytes # (A) 2.2 k/uL (1.0-4.8); Lymphocytes % (A) 20 %; MCH 29.6 pg (25.0-35.0); MCHC 33.7 g/dL (31.0-37.0); MCV 87.8 fL (80.0-100.0); Mean Platelet Volume 7.4; Monocytes # (A) 0.4 k/uL (0-1.0); Monocytes % (A) 4 %; Neutrophils # (A) 7.7 k/uL (1.3-7.7); Neutrophils % (A) 71 %; Platelet Count 333 k/uL (150-450); RBC 4.94 m/uL (3.80-5.40); RDW 15.1 % (11.5-15.5); WBC 10.8 k/uL (3.8-10.6)
[2020-04-19 07:38] LABS: ALT 31 U/L (4-34); AST 31 U/L (14-36); African American GFR (CKD) >90 (>60 ml/min/1.73 sqM); Albumin 4.3 g/dL (3.5-5.0); Alkaline Phosphatase 81 U/L (38-126); Anion Gap 10 mmol/L; Blood Urea Nitrogen 15 mg/dL (7-17); Calcium 9.8 mg/dL (8.4-10.2); Carbon Dioxide 21 mmol/L (22-30); Chloride 110 mmol/L (98-107); Glucose 119 mg/dL (74-99); INR 0.9 (<1.2); LDH 559 U/L (313-618); Magnesium 2.1 mg/dL (1.6-2.3); Non-African American GFR(CKD) 79 (>60 ml/min/1.73 sqM); Potassium 3.7 mmol/L (3.5-5.1); Prothrombin Time 9.7 sec (9.0-12.0); Sodium 141 mmol/L (137-145); Total Bilirubin 0.6 mg/dL (0.2-1.3); Total Protein 7.8 g/dL (6.3-8.2)
--- NOTE | 2020-04-19 07:58 | XR ---
EXAMINATION TYPE: XR chest 1V portable DATE OF EXAM: 04/19/2020 HISTORY: Shortness of breath. COMPARISON: 03/20/2020 TECHNIQUE: Single view of the chest is submitted. FINDINGS: Demonstrated are scattered senescent parenchymal change. Peripheral infiltrate the left midlung zone is noted. Improved aeration at the periphery of the right midlung zone. The heart is stable. Hilar and mediastinal structures are within normal limits. Degenerative changes are seen of the dorsal spine. IMPRESSION: 1. Peripheral infiltrate the left midlung zone is noted. Improved aeration at the periphery of the r ight midlung zone.
[2020-04-19 07:59] LABS: C Reactive Protein <5.0 mg/L (<10.0)
[2020-04-19 09:13] VITALS: BP 138/70; PULSE 75; RESP 18
[2020-04-19 12:18] LABS: Ferritin 172.4 ng/mL (10.0-291.0)
== END 2020-04-19 09:20 | disposition home or self-care (01) ==
LOC: EC 06:45
DX: U07.1 COVID-19 (principal); R11.0 Nausea; R91.8 Other nonspecific abnormal finding of lung field; E86.0 Dehydration; Z85.09 Personal history of malignant neoplasm of other digestive organs; Z90.49 Acquired absence of other specified parts of digestive tract
CPT/HCPCS: 36415; 93005; 80053; 82728; 83605; 83615; 83735; 85025; 85610; 85730; 86140; 84145; 71045; 99285; 96374; 96375 ×2; 96361; J2060; J2930; J2405

== ENCOUNTER → 2020-12-22 | Outpatient (CLI) | payer MEDICARE ==
--- NOTE | 2020-12-22 16:32 | CT ---
EXAMINATION TYPE: CT abdomen pelvis w con DATE OF EXAM: 12/22/2020 COMPARISON: HISTORY: colon ca CT DLP: 1029 mGycm CONTRAST: CT scan of the abdomen and pelvis is performed with Oral Contrast and with IV Contrast, patient injec rowan with 100 mL of Isovue 300. FINDINGS: LUNG BASES-: No visible nodule. No infiltrate. LIVER/GB: No calcified gallstones. No space occupying hepatic lesion. Biliary tree is of normal ca liber. PANCREAS: No inflammation. No distinct mass. SPLEEN: No splenic enlargement. No lesion seen. ADRENALS: No nodule. No thickening. KIDNEYS/BLADDER: No hydronephrosis. No nephrolithiasis. No distinct renal mass. Urinary bladder g rossly unremarkable. BOWEL: Normal appendix. Normal bowel caliber. No inflammation. Scattered colonic diverticulosis wit hout diverticulitis. No obvious colonic mass. Correlate with colonoscopy findings. GENITAL ORGANS: The uterus is surgically absent. LYMPH NODES: No greater than 1cm abdominal or pelvic lymph nodes are appreciated. AORTA: No significant abnormality. OSSEOUS STRUCTURES: No significant abnormality is seen. OTHER: No significant additional abnormality is seen. IMPRESSION: 1. No evidence for metastatic disease. 2. No evidence for colonic mass. Correlate with colonoscopy findings.
== END | disposition home or self-care (01) ==
LOC: RADCTMAIN 11:46
PROVIDERS: ATTEND Internal Medicine Hematology & Oncology
DX: C18.9 Malignant neoplasm of colon, unspecified (principal)
CPT/HCPCS: 82565; 84520; 74177; 36415; Q9967

== ENCOUNTER 2021-08-10 06:09 | Emergency (ER) | payer MEDICARE ==
[2021-08-10 06:22] VITALS: RESP 18
[2021-08-10] MEDS ORDERED: IBUPROFEN 600 MG TAB PO STA (07:09)
[2021-08-10] MEDS ORDERED: SODIUM CHLORIDE 0.9% 500 ML 500 ML IV STA (07:09)
--- NOTE | 2021-08-10 07:12 | ED ---
General Adult HPI - General Chief complaint: Upper Respiratory Infection Stated complaint: NVD Time Seen by Provider: 08/10/21 07:00 Source: patient, RN notes reviewed, old records reviewed Mode of arrival: ambulatory Limitations: no limitations - History of Present Illness Initial comments: Patient is a 76-year-old female, history of colon cancer 2011, presenting to emergency Department with complaints of generalized body aches, some intermittent nausea. Patient believes she may have the flu or different virus. She admits to some intermittent nasal congestion, nontender. She denies any dizziness or lightheadedness, no chest pain or shortness of breath. She denies having a cough. She states she's been trying to eat her normal diet, some mild nausea but none at this time. She denies any vomiting, no diarrhea. She denies any dysuria or abdominal pain. She denies any fevers or chills. She has no further complaints at this time. Her vitals are stable upon arrival. - Related Data Home Medications Medication Instructions Recorded Confirmed Cholecalciferol (Vitamin D3) 75 mcg PO DAILY 08/10/21 08/10/21 [Vitamin D3 (3000 Iu)] Vitamin E (Dl,Tocopheryl Acet) 400 unit PO DAILY 08/10/21 08/10/21 [Vitamin E (400 Iu = 180 mg)] Allergies Allergy/AdvReac Type Severity Reaction Status Date / Time No Known Allergies Allergy Verified 08/10/21 09:03 Review of Systems ROS Statement: Those systems with pertinent positive or pertinent negative responses have been documented in the HPI. ROS Other: All systems not noted in ROS Statement are negative. Past Medical History Past Medical History: Cancer Additional Past Medical History / Comment(s): intestinal CA in 2011 History of Any Multi-Drug Resistant Organisms: None Reported Past Surgical History: Bowel Resection, Hysterectomy Past Anesthesia/Blood Transfusion Reactions: No Reported Reaction Past Psychological History: No Psychological Hx Reported Smoking Status: Never smoker Past Alcohol Use History: Rare Past Drug Use History: None Reported General Exam - General Exam Comments Initial Comments: GENERAL: Patient is well-developed and well-nourished. Patient is nontoxic and in no ac serena distress. HEAD: Atraumatic, normocephalic. EYES: Pupils equal round and reactive to light, extraocular movements intact, sclera anicteric, conjunctiva are normal. Eyelids were unremarkable. ENT: TMs normal, nares patent, oropharynx clear without exudates. Moist mucous me mbranes. NECK: Normal range of motion, supple without lymphadenopathy or JVD. LUNGS: Unlabored respirations. Breath sounds clear to auscultation bilaterally and equal. No wheezes rales or rhonchi. HEART: Regular rate and rhythm without murmurs, rubs or gallops. ABDOMEN: Soft, nontender, normoactive bowel sounds. No guarding, no rebound. No masses appreciated. MUSCULOSKELETAL: Normal extremities with adequate strength and normal range of motion, no pitting or edema. No clubbing or cyanosis. NEUROLOGICAL: Patient is alert and oriented x 3. Motor and sensory are also intact. Cranial nerves II through XII grossly intact. Symmetrical smile. Normal speech, normal gait. PSYCH: Normal mood, normal affect. SKIN: Warm, Dry, normal turgor, no rashes or lesions noted. Limitations: no limitations Course Vital Signs 08/10/21 06:15 Temperature 97.7 F Pulse Rate 90 Respiratory 18 Rate Blood Pressure 149/76 O2 Sat by Pulse 97 Oximetry Medical Decision Making - Medical Decision Making Patient is a 76-year-old female here with generalized body aches, overall just not feeling right over the past couple days. Vital signs are stable upon arrival, exam is completely normal, no acute findings. Labs are unremarkable, urinalysis is normal, covert test is negative. Patient was given some fluids and Motrin and has been resting comfortably, she reports improvement in her symptoms. I discussed with this most likely viral in nature. I recommended Motrin for any continued body aches. She is stable for discharge and she is agreeable to this plan of care. - Lab Data Result diagrams: 08/10/21 07:20 08/10/21 07:20 Lab Results 08/10/21 08/10/21 08/10/21 Range/Units 06:26 07:20 07:20 WBC 10.6 (3.8-10.6) k/uL RBC 5.04 (3.80-5.40) m/uL Hgb 14.6 (11.4-16.0) gm/dL Hct 43.4 (34.0-46.0) % MCV 86.1 (80.0-100.0) fL MCH 29.0 (25.0-35.0) pg MCHC 33.7 (31.0-37.0) g/dL RDW 14.7 (11.5-15.5) % Plt Count 255 (150-450) k/uL MPV 7.3 Neutrophils % 74 % Lymphocytes % 20 % Monocytes % 4 % Eosinophils % 1 % Basophils % 0 % Neutrophils # 7.8 H (1.3-7.7) k/uL Lymphocytes # 2.1 (1.0-4.8) k/uL Monocytes # 0.4 (0-1.0) k/uL Eosinophils # 0.2 (0-0.7) k/uL Basophils # 0.0 (0-0.2) k/uL Sodium 142 (137-145) mmol/L Potassium 4.1 (3.5-5.1) mmol/L Chloride 110 H (98-107) mmol/L Carbon Dioxide 21 L (22-30) mmol/L Anion Gap 11 mmol/L BUN 19 H (7-17) mg/dL Creatinine 0.70 (0.52-1.04) mg/dL Est GFR (CKD-EPI)AfAm >90 (>60 ml/min/1.73 sqM) Est GFR (CKD-EPI)NonAf 86 (>60 ml/min/1.73 sqM) Glucose 118 H (74-99) mg/dL Calcium 9.7 (8.4-10.2) mg/dL Total Bilirubin 0.7 (0.2-1.3) mg/dL AST 27 (14-36) U/L ALT 16 (4-34) U/L Alkaline Phosphatase 89 (38-126) U/L Total Protein 8.1 (6.3-8.2) g/dL Albumin 4.4 (3.5-5.0) g/dL Urine Color Urine Appearance (Clear) Urine pH (5.0-8.0) Ur Specific [place] (1.001-1.035) Urine Protein (Negative) Urine Glucose (UA) (Negative) Urine Ketones (Negative) Urine Blood (Negative) Urine Nitrite (Negative) Urine Bilirubin (Negative) Urine Urobilinogen (<2.0) mg/dL Ur Leukocyte Esterase (Negative) Urine RBC (0-5) /hpf Urine WBC (0-5) /hpf Ur Squamous Epith Cells (0-4) /hpf Urine Bacteria (None) /hpf Urine Mucus (None) /hpf Coronavirus (PCR) Not Detected (Not Detectd) 08/10/21 Range/Units 08:30 WBC (3.8-10.6) k/uL RBC (3.80-5.40) m/uL Hgb (11.4-16.0) gm/dL Hct (34.0-46.0) % MCV (80.0-100.0) fL MCH (25.0-35.0) pg MCHC (31.0-37.0) g/dL RDW (11.5-15.5) % Plt Count (150-450) k/uL MPV Neutrophils % % Lymphocytes % % Monocytes % % Eosinophils % % Basophils % % Neutrophils # (1.3-7.7) k/uL Lymphocytes # (1.0-4.8) k/uL Monocytes # (0-1.0) k/uL Eosinophils # (0-0.7) k/uL Basophils # (0-0.2) k/uL Sodium (137-145) mmol/L Potassium (3.5-5.1) mmol/L Chloride (98-107) mmol/L Carbon Dioxide (22-30) mmol/L Anion Gap mmol/L BUN (7-17) mg/dL Creatinine (0.52-1.04) mg/dL Est GFR (CKD-EPI)AfAm (>60 ml/min/1.73 sqM) Est GFR (CKD-EPI)NonAf (>60 ml/min/1.73 sqM) Glucose (74-99) mg/dL Calcium (8.4-10.2) mg/dL Total Bilirubin (0.2-1.3) mg/dL AST (14-36) U/L ALT (4-34) U/L Alkaline Phosphatase (38-126) U/L Total Protein (6.3-8.2) g/dL Albumin (3.5-5.0) g/dL Urine Color Light Yellow Urine Appearance Clear (Clear) Urine pH 5.0 (5.0-8.0) Ur Specific [place] 1.015 (1.001-1.035) Urine Protein Negative (Negative) Urine Glucose (UA) Negative (Negative) Urine Ketones Negative (Negative) Urine Blood Trace H (Negative) Urine Nitrite Negative (Negative) Urine Bilirubin Negative (Negative) Urine Urobilinogen <2.0 (<2.0) mg/dL Ur Leukocyte Esterase Small H (Negative) Urine RBC <1 (0-5) /hpf Urine WBC 6 H (0-5) /hpf Ur Squamous Epith Cells 1 (0-4) /hpf Urine Bacteria Occasional H (None) /hpf Urine Mucus Rare H (None) /hpf Coronavirus (PCR) (Not Detectd) Disposition Clinical Impression: Body aches, Viral syndrome Disposition: HOME SELF-CARE Condition: Stable Instructions (If sedation given, give patient instructions): Viral Syndrome (ED) Additional Instructions: Please return to the Emergency Department if symptoms worsen or any other concerns. Continue with ibuprofen as needed for body aches. Drink lots of fluids. Follow-up with your PCP as needed. Is patient prescribed a controlled substance at d/c from ED?: No Referrals: Sinan Walsh MD [Primary Care Provider] - 1-2 days Time of Disposition: 09:10
[2021-08-10 07:30] LABS: Basophils % (A) 0 %; Eosinophils # (A) 0.2 k/uL (0-0.7); Eosinophils % (A) 1 %; HCT 43.4 % (34.0-46.0); HGB 14.6 gm/dL (11.4-16.0); Lymphocytes # (A) 2.1 k/uL (1.0-4.8); Lymphocytes % (A) 20 %; MCHC 33.7 g/dL (31.0-37.0); MCV 86.1 fL (80.0-100.0); Mean Platelet Volume 7.3; Monocytes # (A) 0.4 k/uL (0-1.0); Monocytes % (A) 4 %; Neutrophils # (A) 7.8 k/uL (1.3-7.7); Neutrophils % (A) 74 %; Platelet Count 255 k/uL (150-450); RBC 5.04 m/uL (3.80-5.40); RDW 14.7 % (11.5-15.5); WBC 10.6 k/uL (3.8-10.6)
[2021-08-10 07:43] LABS: ALT 16 U/L (4-34); AST 27 U/L (14-36); African American GFR (CKD) >90 (>60 ml/min/1.73 sqM); Albumin 4.4 g/dL (3.5-5.0); Alkaline Phosphatase 89 U/L (38-126); Anion Gap 11 mmol/L; Blood Urea Nitrogen 19 mg/dL (7-17); Calcium 9.7 mg/dL (8.4-10.2); Carbon Dioxide 21 mmol/L (22-30); Chloride 110 mmol/L (98-107); Glucose 118 mg/dL (74-99); Non-African American GFR(CKD) 86 (>60 ml/min/1.73 sqM); Potassium 4.1 mmol/L (3.5-5.1); Sodium 142 mmol/L (137-145); Total Bilirubin 0.7 mg/dL (0.2-1.3); Total Protein 8.1 g/dL (6.3-8.2)
[2021-08-10 08:39] LABS: Appearance,Urine Clear (Clear); Bacteria,Urine Occasional /hpf; Bilirubin,Urine Negative (Negative); Blood,Urine Trace (Negative); Color,Urine Light Yellow; Glucose,Urine (UA) Negative (Negative); Ketones,Urine Negative (Negative); Leukocyte Esterase,Urine Small (Negative); Mucus,Urine Rare /hpf; Nitrite,Urine Negative (Negative); Protein,Urine Negative (Negative); RBC,Urine <1 /hpf (0-5); Specific Gravity,Urine 1.015 (1.001-1.035); Squamous Epithelial Cell,Urine 1 /hpf (0-4); Urobilinogen,Urine <2.0 mg/dL (<2.0); WBC,Urine 6 /hpf (0-5)
[2021-08-10 09:26] VITALS: BP 160/90; PULSE 78; TEMP 97.6
== END 2021-08-10 09:26 | disposition home or self-care (01) ==
LOC: EC 06:09
DX: B34.9 Viral infection, unspecified (principal); M79.18 Myalgia, other site; Z20.822 Contact with and (suspected) exposure to COVID-19; Z85.038 Personal history of other malignant neoplasm of large intestine; Z90.710 Acquired absence of both cervix and uterus
CPT/HCPCS: 36415; 80053; 81001; 85025; 87635; 99283

== ENCOUNTER → 2021-12-14 | Outpatient (CLI) | payer MEDICARE ==
--- NOTE | 2021-12-14 15:41 | CT ---
EXAMINATION TYPE: CT abdomen pelvis w con CT DLP: 871.6 mGycm, Automated exposure control for dose reduction was used. 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 Sagittal and coronal reformats were created on a [employer] workstation. Contrast used:100 mL of Isovue 300 with IV Contrast, Oral contrast used: with Oral Contrast FINDINGS: LOWER CHEST: Breast biopsy clip seen in the left breast ABDOMEN LIVER: Unremarkable GALLBLADDER AND BILE DUCTS: Unremarkable. PANCREAS: Unremarkable. SPLEEN: Unremarkable. ADRENAL GLANDS: Unremarkable. KIDNEYS AND URETERS: No evidence of hydronephrosis or renal calculus. Left renal cyst. PELVIS BLADDER: Unremarkable REPRODUCTIVE: The uterus is surgically absent. ABDOMEN & PELVIS STOMACH AND BOWEL: Colonic diverticulosis throughout the colon. No evidence of bowel obstruction. Kun endix is normal. PERITONEUM: No evidence of pneumoperitoneum or free fluid. VASCULATURE: No evidence of aortic aneurysm. 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 MUSCULOSKELETAL: No acute osseous abnormalities. Mild disc degeneration changes are present throughou t the thoracolumbar spine. LYMPH NODES: No gross evidence for lymphadenopathy. SOFT TISSUE/ABDOMINAL WALL: Intra-abdominal wall hernia repair changes with anchors in place. Ventral wall umbilical hernia containing loop of small bowel. No evidence of bowel obstruction. IMPRESSION: 1. No evidence for metastatic disease or evidence for colonic mass. 2. Colonic diverticulosis. 3. Umbilical Ariza hernia.
== END | disposition home or self-care (01) ==
LOC: RADCTMAIN 13:10
PROVIDERS: ATTEND Internal Medicine Hematology & Oncology
DX: C18.4 Malignant neoplasm of transverse colon (principal); K57.30 Diverticulosis of large intestine without perforation or abscess without bleeding; K42.9 Umbilical hernia without obstruction or gangrene
CPT/HCPCS: 82565; 84520; 74177; 36415; Q9967